=== PATIENT | female | born 1955 | race Caucasian/White ===

== ENCOUNTER 2024-07-30 14:08 | Inpatient (IN) ==
[2024-07-30] MEDS ORDERED: IOPAMIDOL 100 ML BOTTLE IV ONE (14:09)
[2024-07-30] MEDS: ONDANSETRON 4 MG/2 ML VIAL IV ONE ×2 (14:40→17:09)
[2024-07-30] MEDS: 0.9 % SODIUM CHLORIDE 1,000 ML IV ONE ×2 (14:40→16:21)
[2024-07-30 15:07] LABS: Basophils # (Auto) 0.03 K/mcL (0.00-0.30); Basophils % (Auto) 0.2 % (0.0-2.0); Eosinophils # (Auto) 0.79 K/mcL (0.00-0.70); Eosinophils % (Auto) 4.6 % (0.0-7.0); Hematocrit 45.7 % (34.1-44.9); Hemoglobin 14.5 g/dL (11.2-15.7); Lymphocytes # (Auto) 0.55 K/mcL (1.50-4.80); Lymphocytes % (Auto) 3.2 % (15.5-49.0); Mean Cell Volume 87.4 fL (80.0-100.0); Mean Corpuscular HGB Conc 31.7 g/dL (31.0-36.0); Mean Platelet Volume 10.3 fL (8.8-12.5); Monocytes # (Auto) 1.52 K/mcL (0.10-0.90); Monocytes % (Auto) 8.9 % (1.0-12.0); Neutrophils % (Auto) 82.7 % (38.0-78.0); Platelet Count 313 K/mcL (140-440); RBC 5.23 M/mcL (3.59-5.38); Red Cell Distribution Width 13.1 % (11.5-14.5)
[2024-07-30 15:19] LABS: ALT/SGPT 13 U/L (<40); AST/SGOT 18 U/L (<32); Albumin 4.1 gm/dL (3.2-5.2); Albumin/Globulin Ratio 1.4 (1.0-2.3); Alkaline Phosphatase 60 U/L (39-117); Bilirubin,Total 0.3 mg/dL (0.1-1.0); Blood Urea Nitrogen 21 mg/dL (8-23); Calcium 8.5 mg/dL (8.6-10.4); Carbon Dioxide 23 mmol/L (22-30); Chloride 102 mmol/L (96-108); Globulin 2.9 gm/dL (2.2-3.7); Glomerular Filtration Rate 92; Glucose 117 mg/dL (70-105); Potassium 3.6 mmol/L (3.3-5.1); Sodium 137 mmol/L (133-145)
[2024-07-30 17:54] LABS: Appearance,Urine Clear (Clear); Bacteria,Urine Many /hpf (0); Bilirubin,Urine Negative (Negative); Color,Urine Yellow; Glucose,Urine (UA) >=1000 mg/dL (Negative); Ketones,Urine Negative (Negative); Leukocyte Esterase,Urine Trace /uL (Negative); Nitrate,Urine Positive (Negative); PH,Urine 5.5 (5.0-9.0); Protein,Urine Negative (Negative); Specific Gravity,Urine <= 1.005 (1.000-1.035); Urine Blood Negative ery/mcL (Negative); Urine RBC 2 /hpf (0-3); Urine Squamous Epithelial Cell 3 /hpf (0-4); Urine WBC 80 /hpf (0-4); Urobilinogen,Urine Normal
[2024-07-30] MEDS: cefTRIAXone 1 GM VIAL IV ONE (18:01)
[2024-07-30] MEDS ORDERED: DEXTROSE 31 GM ORAL.SUSP PO PRN (20:47)
[2024-07-30] MEDS ORDERED: PROMETHAZINE 25 MG/ML VIAL IV PRN (20:47)
[2024-07-30] MEDS ORDERED: DEXTROSE 50% 50 ML VIAL IV PRN (20:47)
[2024-07-30] MEDS: 0.9 % SODIUM CHLORIDE 10 ML SYRINGE IV SCH (21:22)
[2024-07-30] MEDS: METOCLOPRAMIDE 10 MG/2 ML VIAL IV PRN (21:22)
[2024-07-30] MEDS: 0.9 % SODIUM CHLORIDE 1,000 ML IV SCH (21:23)
[2024-07-30] MEDS: INSULIN LISPRO 1 UNIT/0.01 ML UNIT SQ SCH (21:35)
[2024-07-30] MEDS: NOREPINEPHRINE BITARTRATE 8 MG in 0.9 % SODIUM CHLORIDE 242 ML IV SCH (21:39)
[2024-07-30] MEDS: metroNIDAZOLE 500 MG/100 ML BAG IV SCH (22:30)
[2024-07-30] MEDS: NOREPINEPHRINE 250 ML IV SCH (22:47)
[2024-07-30] MEDS: 0.9 % SODIUM CHLORIDE 250 ML IV SCH (22:47)
[2024-07-30] MEDS ORDERED: ALBUTEROL SULFATE 60 PUFF INHALER INH PRN (23:50)
[2024-07-30] MEDS ORDERED: IPRATROPIUM 2.5 ML AMPUL.NEB INH PRN (23:50)
[2024-07-31] MEDS: IBUPROFEN 200 MG TABLET PO PRN (01:04)
[2024-07-31 06:09] LABS: Basophils # (Auto) 0.03 K/mcL (0.00-0.30); Basophils % (Auto) 0.3 % (0.0-2.0); Eosinophils # (Auto) 0.21 K/mcL (0.00-0.70); Eosinophils % (Auto) 2.3 % (0.0-7.0); Hematocrit 38.6 % (34.1-44.9); Hemoglobin 12.3 g/dL (11.2-15.7); Lymphocytes % (Auto) 4.5 % (15.5-49.0); Mean Cell Volume 87.9 fL (80.0-100.0); Mean Corpuscular HGB Conc 31.9 g/dL (31.0-36.0); Mean Platelet Volume 10.5 fL (8.8-12.5); Monocytes % (Auto) 11.1 % (1.0-12.0); Neutrophils % (Auto) 81.4 % (38.0-78.0); Platelet Count 275 K/mcL (140-440); RBC 4.39 M/mcL (3.59-5.38); Red Cell Distribution Width 13.2 % (11.5-14.5)
[2024-07-31 06:20] LABS: Phosphorous 2.4 mg/dL (2.5-4.5)
[2024-07-31 06:26] LABS: ALT/SGPT 14 U/L (<40); AST/SGOT 19 U/L (<32); Albumin 3.3 gm/dL (3.2-5.2); Albumin/Globulin Ratio 1.5 (1.0-2.3); Alkaline Phosphatase 44 U/L (39-117); Bilirubin,Total < 0.2 mg/dL (0.1-1.0); Blood Urea Nitrogen 14 mg/dL (8-23); Calcium 6.6 mg/dL (8.6-10.4); Carbon Dioxide 20 mmol/L (22-30); Chloride 106 mmol/L (96-108); Globulin 2.2 gm/dL (2.2-3.7); Glomerular Filtration Rate 92; Glucose 94 mg/dL (70-105); Potassium 2.9 mmol/L (3.3-5.1); Sodium 138 mmol/L (133-145)
[2024-07-31] MEDS ORDERED: Diclofenac Sodium 1 % gel TOPICAL PRN (07:40)
[2024-07-31] MEDS ORDERED: NAPROXEN 250 MG TABLET PO PRN (07:44)
[2024-07-31] MEDS: OMEPRAZOLE 20 MG CAPSULE PO SCH (08:04)
[2024-07-31] MEDS: cefTRIAXone 2 GM in DEXTROSE 5% IN WATER 50 ML IV SCH (08:04)
[2024-07-31] MEDS: ACETAMINOPHEN 325 MG TABLET PO PRN (08:04)
[2024-07-31] MEDS: LEVOTHYROXINE 88 MCG TABLET PO SCH (08:04)
[2024-07-31] MEDS: POTASSIUM PHOSPHATE 40 MEQ in DEXTROSE 5% IN WATER 500 ML IV SCH (08:04)
[2024-07-31] MEDS: POTASSIUM CHLORIDE 10 MEQ TABLET PO SCH (08:05)
[2024-07-31] MEDS: ENOXAPARIN 40 MG/0.4 ML SYRINGE SQ SCH (09:47)
[2024-07-31] MEDS: LOPERAMIDE 2 MG CAPSULE PO PRN (09:47)
[2024-07-31] MEDS: CALCIUM GLUCONATE 9.3 MEQ in DEXTROSE 5% IN WATER 100 ML IV SCH (10:25)
[2024-07-31] MEDS: CLOTRIMAZOLE/BETAMETHASONE DIP 45 GM CREAM..G. TP SCH (11:00)
[2024-07-31] MEDS: Fluticasone Furoate-Vilanterol [Breo Ellipta] 100 INH SCH (11:04)
[2024-07-31] MEDS: GEMFIBROZIL 600 MG TABLET PO SCH (11:48)
[2024-07-31] MEDS: ACETAMINOPHEN 650 MG/65 ML BAG IV PRN (14:37)
[2024-07-31] MEDS: ACETAMINOPHEN 1,000 MG/100 ML BAG IV ONE (14:38)
[2024-07-31] MEDS: ONDANSETRON 4 MG/2 ML VIAL ONE (15:03)
[2024-07-31] MEDS: ONDANSETRON 4 MG/2 ML VIAL IV PRN (15:03)
[2024-07-31 15:44] LABS: Blood Urea Nitrogen 9 mg/dL (8-23); Calcium 7.4 mg/dL (8.6-10.4); Carbon Dioxide 21 mmol/L (22-30); Chloride 106 mmol/L (96-108); Glomerular Filtration Rate 92; Glucose 92 mg/dL (70-105); Potassium 3.7 mmol/L (3.3-5.1); Sodium 140 mmol/L (133-145)
[2024-07-31] MEDS: POTASSIUM CHLORIDE 20 MEQ TABLET PO SCH (16:57)
[2024-07-31] MEDS: IPRATROPIUM/ALBUTEROL 3 ML AMPUL.NEB NEB PRN (19:02)
[2024-07-31] MEDS: CALCIUM CARBONATE 500 MG TAB.CHEW PO SCH (20:20)
[2024-08-01 06:32] LABS: Basophils # (Auto) 0.01 K/mcL (0.00-0.30); Basophils % (Auto) 0.1 % (0.0-2.0); Eosinophils # (Auto) 0.02 K/mcL (0.00-0.70); Eosinophils % (Auto) 0.2 % (0.0-7.0); Hematocrit 38.4 % (34.1-44.9); Hemoglobin 12.3 g/dL (11.2-15.7); Lymphocytes # (Auto) 0.78 K/mcL (1.50-4.80); Lymphocytes % (Auto) 8.1 % (15.5-49.0); Mean Cell Volume 87.5 fL (80.0-100.0); Mean Platelet Volume 10.7 fL (8.8-12.5); Monocytes # (Auto) 1.54 K/mcL (0.10-0.90); Neutrophils % (Auto) 75.3 % (38.0-78.0); Platelet Count 249 K/mcL (140-440); RBC 4.39 M/mcL (3.59-5.38); Red Cell Distribution Width 13.2 % (11.5-14.5); WBC 9.6 K/mcL (4.5-11.0)
[2024-08-01 06:40] LABS: Phosphorous 1.7 mg/dL (2.5-4.5)
[2024-08-01 06:50] LABS: ALT/SGPT 18 U/L (<40); AST/SGOT 26 U/L (<32); Albumin 3.4 gm/dL (3.2-5.2); Albumin/Globulin Ratio 1.5 (1.0-2.3); Alkaline Phosphatase 42 U/L (39-117); Bilirubin,Total < 0.2 mg/dL (0.1-1.0); Blood Urea Nitrogen 5 mg/dL (8-23); Calcium 6.9 mg/dL (8.6-10.4); Carbon Dioxide 18 mmol/L (22-30); Chloride 104 mmol/L (96-108); Globulin 2.2 gm/dL (2.2-3.7); Glomerular Filtration Rate 92; Glucose 96 mg/dL (70-105); Sodium 134 mmol/L (133-145)
[2024-08-01] MEDS: PHENAZOPYRIDINE 200 MG TABLET PO PRN (09:27)
[2024-08-01] MEDS: POTASSIUM PHOSPHATE 40 MEQ in DEXTROSE 5% IN WATER 500 ML IV ONE (11:38)
[2024-08-01] MEDS: POTASSIUM CHLORIDE 20 MEQ TABLET PO SCH (17:32)
[2024-08-01] MEDS: CALCIUM W/VIT D3 500 MG TABLET PO SCH (21:10)
[2024-08-02 06:56] LABS: Basophils # (Auto) 0.03 K/mcL (0.00-0.30); Basophils % (Auto) 0.5 % (0.0-2.0); Eosinophils # (Auto) 0.04 K/mcL (0.00-0.70); Eosinophils % (Auto) 0.7 % (0.0-7.0); Hematocrit 38.8 % (34.1-44.9); Hemoglobin 12.4 g/dL (11.2-15.7); Lymphocytes # (Auto) 1.08 K/mcL (1.50-4.80); Lymphocytes % (Auto) 17.6 % (15.5-49.0); Mean Cell Volume 87.6 fL (80.0-100.0); Mean Platelet Volume 10.6 fL (8.8-12.5); Monocytes # (Auto) 1.05 K/mcL (0.10-0.90); Monocytes % (Auto) 17.2 % (1.0-12.0); Neutrophils % (Auto) 63.5 % (38.0-78.0); Platelet Count 239 K/mcL (140-440); RBC 4.43 M/mcL (3.59-5.38); Red Cell Distribution Width 13.5 % (11.5-14.5); WBC 6.1 K/mcL (4.5-11.0)
[2024-08-02 06:58] LABS: Phosphorous 1.8 mg/dL (2.5-4.5)
[2024-08-02 07:02] LABS: ALT/SGPT 20 U/L (<40); AST/SGOT 35 U/L (<32); Albumin 3.3 gm/dL (3.2-5.2); Albumin/Globulin Ratio 1.6 (1.0-2.3); Alkaline Phosphatase 38 U/L (39-117); Bilirubin,Total < 0.2 mg/dL (0.1-1.0); Blood Urea Nitrogen 3 mg/dL (8-23); Calcium 6.6 mg/dL (8.6-10.4); Carbon Dioxide 19 mmol/L (22-30); Chloride 109 mmol/L (96-108); Globulin 2.1 gm/dL (2.2-3.7); Glomerular Filtration Rate 92; Glucose 93 mg/dL (70-105); Potassium 3.2 mmol/L (3.3-5.1); Sodium 141 mmol/L (133-145)
[2024-08-02] MEDS ORDERED: CALCIUM CARBONATE 500 MG TAB.CHEW CHEWED PRN (08:25)
[2024-08-02] MEDS: MAGNESIUM OXIDE 400 MG TABLET PO SCH (10:19)
[2024-08-02] MEDS: POTASSIUM PHOSPHATE 20 MEQ in DEXTROSE 5% IN WATER 250 ML IV ONE (10:22)
[2024-08-02] MEDS: OMEPRAZOLE 20 MG CAPSULE PO SCH (17:26)
[2024-08-03 06:10] LABS: Basophils # (Auto) 0.02 K/mcL (0.00-0.30); Basophils % (Auto) 0.3 % (0.0-2.0); Eosinophils # (Auto) 0.19 K/mcL (0.00-0.70); Hematocrit 39.3 % (34.1-44.9); Hemoglobin 12.7 g/dL (11.2-15.7); Lymphocytes # (Auto) 1.44 K/mcL (1.50-4.80); Lymphocytes % (Auto) 22.6 % (15.5-49.0); Mean Cell Volume 85.2 fL (80.0-100.0); Mean Corpuscular HGB Conc 32.3 g/dL (31.0-36.0); Mean Platelet Volume 10.6 fL (8.8-12.5); Monocytes # (Auto) 0.93 K/mcL (0.10-0.90); Monocytes % (Auto) 14.6 % (1.0-12.0); Neutrophils % (Auto) 59.2 % (38.0-78.0); Platelet Count 250 K/mcL (140-440); RBC 4.61 M/mcL (3.59-5.38); Red Cell Distribution Width 13.4 % (11.5-14.5); WBC 6.4 K/mcL (4.5-11.0)
[2024-08-03 06:31] LABS: Phosphorous 1.6 mg/dL (2.5-4.5)
[2024-08-03 07:33] VITALS: O2SAT 96
[2024-08-03 07:41] LABS: ALT/SGPT 18 U/L (<40); AST/SGOT 35 U/L (<32); Albumin 3.3 gm/dL (3.2-5.2); Albumin/Globulin Ratio 1.4 (1.0-2.3); Alkaline Phosphatase 39 U/L (39-117); Bilirubin,Total < 0.2 mg/dL (0.1-1.0); Blood Urea Nitrogen 4 mg/dL (8-23); Calcium 7.3 mg/dL (8.6-10.4); Carbon Dioxide 21 mmol/L (22-30); Chloride 105 mmol/L (96-108); Globulin 2.4 gm/dL (2.2-3.7); Glomerular Filtration Rate 92; Glucose 90 mg/dL (70-105); Potassium 3.4 mmol/L (3.3-5.1); Sodium 138 mmol/L (133-145)
[2024-08-03] MEDS: POTASSIUM PHOSPHATE 20 MEQ in DEXTROSE 5% IN WATER 250 ML IV SCH (12:22)
[2024-08-03] MEDS: MAGNESIUM SULFATE 4 GM/100 ML BAG IV SCH (12:22)
[2024-08-03 13:53] VITALS: TEMP 97.5
== END 2024-08-03 16:20 | disposition home or self-care (01) | DRG 871 ==
LOC: ED 14:08 → ICU 20:42 → MEDSUR 08-02 13:18
PROVIDERS: ADMIT Internal Medicine; ATTEND Internal Medicine Critical Care Medicine